=== PATIENT | male | born 1995 | race Two or more races ===

== ENCOUNTER 2018-04-08 04:39 | Emergency (ER) | payer OTHER ==
[~2018-04-08] VITALS: Ht 172.7 cm; Wt 60.0 kg
[2018-04-08] MEDS ORDERED: ASPIRIN 81MG TABLET PO ONE (05:15)
[2018-04-08] MEDS ORDERED: MAGNESIUM/ALUMINUM HYDROXIDE/SIMETHICONE 30ML UDC PO ONE (05:15)
[2018-04-08 05:44] LABS: BASOPHILS % 0.4 % (0.0-2.0); EOSINOPHILS % 1.1 % (0.0-5.0); HEMATOCRIT. 44.4 % (42.0-52.0); HEMOGLOBIN. 15.7 g/dL (14.0-18.0); LYMPHOCYTES % 17.9 % (20.0-50.0); MEAN CORPUSCULAR VOLUME 90.4 fL (80.0-94.0); MEAN PLATELET VOLUME 7.4 fl (7.4-10.4); MONOCYTES % 13.7 % (2.0-8.0); NEUTROPHILS % 66.9 % (40.0-76.0); PLATELET 201 x1000/uL (130-400); RED BLOOD CELL COUNT 4.91 mill/uL (4.7-6.1); RED CELL DISTRIBUTION WIDTH 12.4 % (11.6-14.6)
[2018-04-08 05:51] LABS: CHLORIDE 106 mEq/L (98-107)
[2018-04-08 05:55] LABS: ETHANOL BLOOD < 10 mg/dL
[2018-04-08 05:57] LABS: PROTHROMBIN TIME 10.8 sec (9.4-11.6)
[2018-04-08 06:39] LABS: CLARITY URINE CLEAR (CLEAR); COLOR URINE YELLOW (YELLOW); KETONES URINE TRACE (NEGATIVE); LEUKOCYTE ESTERASE URINE NEGATIVE (NEGATIVE); NITRITE URINE NEGATIVE (NEGATIVE); OCCULT BLOOD URINE NEGATIVE (NEGATIVE); PROTEIN URINE NEGATIVE (NEGATIVE); SPECIFIC GRAVITY URINE 1.024 (1.005-1.030)
[2018-04-08] MEDS ORDERED: KETOROLAC 15MG/ML VIAL IV ONE (06:45)
[2018-04-08] MEDS ORDERED: SODIUM CHLORIDE 0.9% 1,000 ML IV ONE (06:45)
[2018-04-08 07:00] LABS: *AMPHETAMINES SCREEN URINE NEGATIVE (NEGATIVE); *BARBITURATES SCREEN URINE NEGATIVE (NEGATIVE); *BENZODIAZEPINES SCREEN URINE NEGATIVE (NEGATIVE); *COCAINE SCREEN URINE NEGATIVE (NEGATIVE); METHADONE URINE SCREEN NEGATIVE (NEGATIVE); OPIATES URINE SCREEN NEGATIVE (NEGATIVE)
[2018-04-08 07:01] LABS: CANNABINOID URINE SCREEN NEGATIVE (NEGATIVE); PHENCYCLIDINE URINE SCREEN NEGATIVE (NEGATIVE)
[2018-04-08] MEDS ORDERED: TETANUS, DIPHTHERIA, PERTUSSIS VAC/PF 0.5ML (>7YR OLD) IM ONE (07:45)
[2018-04-08 08:47] VITALS: BP 109/74
== END 2018-04-08 08:47 | disposition home or self-care (01) ==
LOC: ER 04:39
DX: B34.9 Viral infection, unspecified (principal); R05 Cough; M79.1 Myalgia; R00.0 Tachycardia, unspecified; R07.9 Chest pain, unspecified; R11.0 Nausea; Z79.82 Long term (current) use of aspirin; Z23 Encounter for immunization; Z88.0 Allergy status to penicillin
CPT/HCPCS: 36415; 71045; 80053; 80305; 81003; 83690; 83880; 84484; 85025; 85610; 90471; 90715; 93005; 96374; 99285; G0482; J1885; J7030